=== PATIENT | female | born 1950 | race Caucasian/White ===

== ENCOUNTER 2017-05-26 13:14 | Inpatient (IN) ==
[2017-05-26] MEDS ORDERED: DOCUSATE SODIUM 100 MG CAPSULE PO PRN (16:58)
[2017-05-26] MEDS ORDERED: MORPHINE 2 MG/1 ML SYRINGE IV PRN (16:58)
[2017-05-26] MEDS ORDERED: LACTULOSE 20 GM/30 ML UDCUP PO PRN (16:58)
[2017-05-26] MEDS ORDERED: ACETAMINOPHEN 325 MG TABLET PO PRN (16:58)
[2017-05-26] MEDS ORDERED: SODIUM CHLORIDE 0.9% 1,000 ML IV SCH (17:00)
--- NOTE | 2017-05-26 17:29 | Hospitalist History & Physical ---
Assessment and Plan - Time spent with patient Time spent with patient: Greater than 30 minutes (1) Abdominal pain Status: Acute Assessment and plan: Patient has 5-6 day history of right lower and right upper quadrant pain with associated nausea vomiting diarrhea. CT at [facility] noted acute uncomplicated pancreatitis despite having normal pancreatic enzymes. Patient will be admitted for IV hydration, parenteral antiemetics and analgesics. Will consult GI to assist in her care. Current Visit: Yes (2) Nausea and vomiting Status: Acute Assessment and plan: Plan as noted above. Current Visit: Yes (3) Diarrhea Status: Acute Assessment and plan: Plan as noted above. Current Visit: Yes (4) Hypertension Status: Chronic Assessment and plan: We will continue her home amlodipine and atenolol. Current Visit: Yes Qualifiers: Hypertension type: essential hypertension Qualified Code(s): I10 - Essential (primary) hypertension (5) Trigeminal neuralgia Status: Chronic Assessment and plan: She is currently asymptomatic. She states that she been on Trileptal in the past which caused liver toxicity. She now sees a neurologist in [facility] in [place] who provides Botox injections which control her pain. Current Visit: Yes (6) Hypokalemia Status: Acute Assessment and plan: We will provide potassium replacement and IV fluids and follow-up level in the a.m. Current Visit: Yes History of Present Illness Chief complaint: Abdominal pain History of present illness: Ms. Abrams is a 67 year old white female with a history of hypertension, SVT, trigeminal neuralgia who states that on Monday she noted lower abdominal discomfort with abdominal swelling. She was initially seen an [facility] emergency room and felt to have diverticulitis and was placed on oral antibiotics and antiemetics and discharged home. Symptoms persisted and also included nausea with vomiting with attempts at any oral intake and right lower and right upper quadrant pain which radiated to her back and worsened with oral intake along with nonbloody diarrhea. And she went back to the emergency room at [facility]. She was admitted there and underwent CT of the abdomen and pelvis which noted findings consistent with acute uncomplicated pancreatitis. However her amylase and lipase were within normal limits. She has noted some low-grade fever as well. She states that she does have a history of diverticulitis. She was ultimately transferred [facility] for further evaluation and care. Home Medications Medication Instructions Recorded Confirmed Type Aspirin [Ecotrin] 81 mg PO BEDTIME 07/07/17 07/07/17 History Atenolol [Atenolol] 50 mg PO BID 05/26/17 05/26/17 History Docusate Sodium Cap [Colace Cap] 200 mg PO DAILY 05/26/17 05/26/17 History Esomeprazole Magnesium 40 mg PO DAILY 05/26/17 05/26/17 History [Esomeprazole] Potassium Chloride 20 meq PO DAILY 05/26/17 05/26/17 History Simvastatin [Simvastatin] 20 mg PO BEDTIME 05/26/17 05/26/17 History Temazepam [Temazepam] 15 mg PO BEDTIME PRN 05/26/17 05/26/17 History Tramadol HCl [Tramadol Tab] 50 mg PO BID PRN 05/26/17 05/26/17 History Tramadol HCl [Tramadol Tab] 50 mg PO BID PRN 05/26/17 05/26/17 History Triamterene/Hctz 37.5-25 Tab 1 tablet PO DAILY 05/26/17 05/26/17 History [Maxzide 37.5-25] amLODIPine [Norvasc] 2.5 mg PO DAILY 05/26/17 05/26/17 History Allergies Allergy/AdvReac Type Severity Reaction Status Date / Time No Known Allergies Allergy Verified 05/26/17 18:29 Medical,Surgical,& Family Hx - Medical History Cardio: History of: Cardiac Dysrhythmia (SVT), Hypertension Neurology: History of: Neurological Problems (Trigeminal neuralgia) Gastrointestinal: History of: Liver Problems (liver toxicity last year), GI Problems (duodenal ulcer) Musculoskeletal: History of: Back/Neck Problems (spinal stenosis) - Surgical History Abdominal Surgeries: Surgical HX of: Cholecystectomy Reproductive Surgeries: Surgical HX of;: Hysterectomy (1985) - Family History Family History: Reports;: Family Cancer (Father with colon cancer), Additional Family History (Mother with cerebral hemorrhage) - Social History Smoking Status: Never smoker Frequency of Alcohol Use: None Type of Drug Use: None Marital Status: Lives With:: Spouse 12 point system: reviewed and no additional remarkable complaints except as stated Exam - Constitutional Vitals: Period Temp Pulse Resp BP Sys/Fields Pulse Ox Last 24 Hr 98.8 F 102 18-18 160/70 98 General appearance: no acute distress - Head Head exam: Present: normocephalic, atraumatic - Eye Eye exam: Present: EOMI, nystagmus Pupils: Present: DAY - ENT ENT exam: Present: normal exam, normal oropharynx - Neck Neck exam: Present: normal inspection - Respiratory Respiratory exam: Present: clear to auscultation bilaterally. Absent: rales, rhonchi, wheezes - Cardiovascular Cardiovascular exam: Present: regular rate and rhythm, tachycardia. Absent: gallop, JVD, systolic murmur - GI/Abdominal GI/Abdominal exam: Present: normal bowel sounds, tenderness (Tenderness in the right lower and right upper quadrant without guarding or rebound), soft. Absent : mass, rebound - Extremities Exam Extremities exam: Absent: calf tenderness, edema - Back Exam Back exam: Present: normal inspection - Neurological Exam Neurological exam: Present: alert, oriented X3, CN II-XII intact. Absent: motor sensory deficit - Psychiatric Psychiatric exam: Present: normal affect, normal mood. Absent: agitated, anxious - Skin Skin exam: Present: warm, dry. Absent: erythema, rash Results - Labs CBC & BMP: 05/26/17 17:42 05/26/17 17:42 Lab Results: I have reviewed the past 24 hour labs Labs: Laboratory studies from [facility] reviewed. - Diagnostic Findings Procedure: CT Abdomen and Pelvis: report reviewed by me
[2017-05-26] MEDS ORDERED: hydrALAZINE 20 MG/1 ML VIAL IV PRN (17:38)
[2017-05-26 17:56] LABS: Basophils # 0.1 10*3/uL (0.0-0.2); Basophils % 0.5 % (0.0-0.8); Eosinophils # 0.1 10*3/uL (0.0-0.87); Eosinophils % 0.5 % (0.00-10.9); Hematocrit 36.2 VOL% (35.7-47.0); Hemoglobin 12.3 GM/DL (12.0-16.0); Immature Granulocytes % 0.3 %; Immature Granulocytes Absolute 0.03 #; Lymphocytes # 1.7 10*3/uL (1.4-4.0); Lymphocytes % 17.5 % (21.3-54.2); Mean Corpuscular Hemoglobin 30 PG (27-34); Mean Corpuscular Volume 89.4 FL (87-102); Mean Platelet Volume 10.2 FL (9.6-12.0); Monocytes # 0.8 10*3/uL (0.11-0.8); Monocytes % 8.5 % (1.7-12.7); Neutrophils % 72.7 % (38.7-73.9); Platelet Count 313 T/CUMM (130-400); Red Blood Count 4.05 MC/CUMM (3.8-5.5); Red Cell Distribution Width 12.9 % (9.3-17.3); White Blood Count 9.7 T/CUMM (4-12)
[2017-05-26] MEDS ORDERED: ATENOLOL 50 MG TABLET PO SCH (18:00)
[2017-05-26 18:22] LABS: Calcium 8.3 MG/DL (8.5-10.1); Osmolality,Calculated 279.1 MOS/KG (273-304); Potassium 3.3 MMOL/L (3.5-5.1)
[2017-05-26 18:23] LABS: Risk Ratio 2.15; Thyroid Stimulating Hormone 1.03 uIU/ml (0.358-3.74)
[2017-05-26] MEDS: amLODIPine 2.5 MG TABLET PO SCH (20:12)
[2017-05-26] MEDS: ATENOLOL 50 MG TABLET PO SCH (20:12)
[2017-05-26] MEDS: DEXT 5% NACL 0.45% KCL 40 MEQ 40 MEQ/1,000 ML BAG IV SCH (21:29)
[2017-05-27 05:50] LABS: Basophils # 0.1 10*3/uL (0.0-0.2); Basophils % 0.5 % (0.0-0.8); Eosinophils # 0.2 10*3/uL (0.0-0.87); Hematocrit 37.9 VOL% (35.7-47.0); Hemoglobin 12.7 GM/DL (12.0-16.0); Immature Granulocytes % 0.4 %; Immature Granulocytes Absolute 0.04 #; Lymphocytes % 21.8 % (21.3-54.2); Mean Corpuscular HGB Conc 33.5 GM/DL (32-36); Mean Corpuscular Hemoglobin 30 PG (27-34); Mean Corpuscular Volume 89.8 FL (87-102); Mean Platelet Volume 10.6 FL (9.6-12.0); Neutrophils % 64.3 % (38.7-73.9); Platelet Count 336 T/CUMM (130-400); Red Blood Count 4.22 MC/CUMM (3.8-5.5); Red Cell Distribution Width 12.8 % (9.3-17.3); White Blood Count 9.4 T/CUMM (4-12)
[2017-05-27 06:16] LABS: Calcium 8.5 MG/DL (8.5-10.1); Magnesium 2.3 MG/DL (1.8-2.4); Osmolality,Calculated 277.3 MOS/KG (273-304); Potassium 3.8 MMOL/L (3.5-5.1)
[2017-05-27 06:22] LABS: Calcium 8.4 MG/DL (8.5-10.1); Osmolality,Calculated 277.3 MOS/KG (273-304); Potassium 3.8 MMOL/L (3.5-5.1)
[2017-05-27] MEDS: ONDANSETRON 4 MG/2 ML VIAL IV PRN (08:14)
[2017-05-27] MEDS: PANTOPRAZOLE 40 MG VIAL IV SCH (08:16)
[2017-05-27] MEDS: ATENOLOL 50 MG TABLET PO SCH ×2 (08:21→20:22)
[2017-05-27] MEDS: amLODIPine 2.5 MG TABLET PO SCH (08:21)
[2017-05-27] MEDS ORDERED: PANTOPRAZOLE 40 MG TABLET PO SCH (09:00)
--- NOTE | 2017-05-27 09:11 | Gastrointestinal Consult Note ---
Assessment and Plan - Time spent with patient Time spent with patient: Greater than 30 minutes (1) Abdominal pain Status: Acute Current Visit: Yes (2) Abnormal findings on diagnostic imaging of abdomen Status: Acute Current Visit: Yes (3) Other specified counseling Status: Acute Current Visit: Yes History of Present Illness History of present illness: Ms. Abrams is a 67 year old female Home Medications Medication Instructions Recorded Confirmed Type Aspirin [Ecotrin] 81 mg PO BEDTIME 05/26/17 05/26/17 History Atenolol [Atenolol] 50 mg PO BID 05/26/17 05/26/17 History Docusate Sodium Cap [Colace Cap] 200 mg PO DAILY 05/26/17 05/26/17 History Esomeprazole Magnesium 40 mg PO DAILY 05/26/17 05/26/17 History [Esomeprazole] Potassium Chloride 20 meq PO DAILY 05/26/17 05/26/17 History Simvastatin [Simvastatin] 20 mg PO BEDTIME 05/26/17 05/26/17 History Temazepam [Temazepam] 15 mg PO BEDTIME PRN 05/26/17 05/26/17 History Tramadol HCl [Tramadol Tab] 50 mg PO BID PRN 05/26/17 05/26/17 History Tramadol HCl [Tramadol Tab] 50 mg PO BID PRN 05/26/17 05/26/17 History Triamterene/Hctz 37.5-25 Tab 1 tablet PO DAILY 05/26/17 05/26/17 History [Maxzide 37.5-25] amLODIPine [Norvasc] 2.5 mg PO DAILY 05/26/17 05/26/17 History Allergies Allergy/AdvReac Type Severity Reaction Status Date / Time No Known Allergies Allergy Verified 05/26/17 18:29 Medical,Surgical,& Family Hx - Medical History Cardio: History of: Cardiac Dysrhythmia (SVT), Hypertension Neurology: History of: Neurological Problems (Trigeminal neuralgia) Gastrointestinal: History of: Liver Problems (liver toxicity last year), GI Problems (duodenal ulcer) Musculoskeletal: History of: Back/Neck Problems (spinal stenosis) - Surgical History Abdominal Surgeries: Surgical HX of: Cholecystectomy Reproductive Surgeries: Surgical HX of;: Hysterectomy (1985) - Family History Family History: Reports;: Family Cancer (Father with colon cancer), Additional Family History (Mother with cerebral hemorrhage) - Social History Smoking Status: Never smoker Frequency of Alcohol Use: None Type of Drug Use: None Exam - Constitutional Vitals: Period Temp Pulse Resp BP Sys/Fields Pulse Ox Last 24 Hr 97.8 F-98.8 F 77-102 18-20 129-160/70-87 94-98 Results - Labs CBC & BMP: 05/27/17 04:57 05/27/17 04:57 Note Addendum: PLEASE NOTE -- automatic citation of patient information is unavoidable in this electronic note. I have made a reasonable effort to review the information cited , but it is not a part of my evaluation, impression, or recommendation unless specifically discussed in the dictated text that follows. As well, voice recognition software was used in the creation of this clinical note. Reasonable effort was made to identify and correct gross errors. Despite proofreading, errors in technology infusion specialist may be present, including nonsense verbiage at times. If you encounter such an error, please contact me at [phone] for discussion and correction. -- Jhonny Chief complaint: abdominal pain History of present illness: This is a new patient, a 67-year-old female seen by consultation for evaluation of abdominal pain. The patient is admitted to the hospitalist service under the care of Dr. Ramos with a primary diagnosis of same. The patient was admitted via transfer through the emergency department from [facility] with primary complaint of persistent lower abdominal pain. Evaluation at that time revealed radiologic evidence of acute pancreatitis but the patient did not have concomitant laboratory evidence of same, neither was the pattern of her pain consistent. She had been previously seen and treated in that same emergency department with presumptive diagnosis of diverticulitis but with no relief after two days of antibiotics. Since her admission here she has been treated conservatively with intravenous hydration, antiemetic, and analgesic. She reports improvement since her initial diagnosis but continues to have mild abdominal discomfort. She is having bowel movements, loose, yellow, without blood, mucus, or pus. She is hungry and would like to eat. She reports a history of duodenal ulcer last year but this was a presumptive diagnosis with no endoscopy done. She reports at least one prior episode of right-sided diverticulitis with subsequent colonoscopy accomplished by Dr. Osuna and no other findings on the exam. She is without other complaints at present. Patient denies night sweats, rigors, headache, dizziness, neck pain, visual changes, redness of the eyes, dysphagia, odynophagia, difficulty chewing, chest pain, shortness of breath, weight loss, regurgitation, hematemesis, hematochezia , melena, proctalgia, constipation, dysuria, skin changes, temperature regulation issues, flushing, easy bleeding/bruising, musculoskeletal pain, mental status change, numbness/weakness in the extremities, yellowing of the eyes/skin, cutaneous eruptions, and other complaints in general. Review of systems: 12 point review of systems was negative except as documented above. Outpatient medications: Colace, Mac side, tramadol, temazepam, aspirin, tramadol , potassium chloride, Nexium, Norvasc, Zocor, atenolol Inpatient medications: Tylenol, Norvasc, atenolol, Colace, hydralazine, [place], lactulose, morphine sulfate, Zofran, Protonix, D51/2NS infusion Past Medical History: supra-ventricular tachycardia, hypertension, trigeminal neuralgia, acute liver toxicity (Trileptal), duodenal ulcer, spinal stenosis, cholecystectomy, hysterectomy Social history: negative tobacco. Negative alcohol Family history: father with colorectal cancer greater than 60 years of age Physical examination: Vital Signs: Current vital signs reviewed and documented above. General Appearance: well-appearing. Not acutely ill. Head: Normocephalic. Neck: Palpation of the neck revealed no abnormalities. Eyes: No scleral icterus. No scleral injection. No conjunctival pallor. Oral Cavity: Odor of breath was normal. No drooling was observed. Lips showed no abnormalities. Floor of the mouth showed no abnormalities. Pharynx: Oropharynx was normal. Lungs: Respiration rhythm and depth was normal. Cardiovascular: Heart rate and rhythm were normal. No murmurs were appreciated. Abdomen: abdomen was not distended. Abdominal palpation revealed mild right lower quadrant tenderness and no hepatosplenomegaly. Ascites was not discovered. Abdominal auscultation revealed positive bowel sounds. Musculoskeletal System: Musculoskeletal system was grossly normal. Neurological: level of consciousness was normal. Speech was normal. Skin: General appearance was normal. Color and pigmentation were normal. No skin lesions. Laboratory: white blood count 9.4, hemoglobin 12.7, hematocrit 37.9, platelets 336, lipase 165 Radiology: reviewed Impressions: 1. Abdominal pain -- the differential diagnosis includes infectious enterocolitis, acute pancreatitis with atypical presentation, peptic ulcer, gastritis/esophagitis generally, pancreatic or biliary disease, and others. I recommend continued supportive care and initiation of a clear liquid diet. We will plant colonoscopy, likely on Monday, sooner if indicated. I recommend continued proton pump inhibitor. I recommend screening liver associated enzymes. 2. Abnormal imaging of the pancreas -- I don't have access to the actual images but this would be an atypical presentation for acute pancreatitis. While this does not rule out the diagnosis definitively, it does argue against. Nonetheless , I recommend continued supportive care with careful advancement of diet starting with clear liquids today. 2. Other specified counseling -- The patient was seen for greater than 30 minutes. The patient was counseled for greater than 50% of this time regarding differential diagnosis, likely diagnosis, diagnostic and therapeutic alternatives, risks/benefits/alternatives of medications and procedures, and plan of care generally. The patient expressed understanding and wishes to proceed. Recommendations: -- continued supportive care -- continued volume and electrolyte management -- continue proton pump inhibitor -- clear liquid diet -- colonoscopy, likely Monday -- patient may need upper endoscopy if no finding on colonoscopy -- screen for elevated liver enzymes -- thank you for this consultation. We will follow with you.
[2017-05-27] MEDS: DEXT 5% NACL 0.45% KCL 40 MEQ 40 MEQ/1,000 ML BAG IV SCH ×2 (10:41→23:43)
--- NOTE | 2017-05-27 11:22 | Hospitalist Progress Note ---
<Mack Soni - Last Filed: 05/27/17 12:48> Assessment and Plan (1) Abdominal pain Status: Acute Assessment and plan: Consult GI to evaluate. Clear diet. IVF. Pain meds as needed. Current Visit: Yes (2) Hypokalemia Status: Acute Assessment and plan: Potassium is stable today. Continue to monitor. Current Visit: Yes (3) Nausea and vomiting Status: Acute Assessment and plan: IVF hyrdation. Provide anti-emetics prn. Current Visit: Yes (4) Trigeminal neuralgia Status: Chronic Assessment and plan: Chronic issue. Pt. was on Trileptal. Followed by a doctor in [place]. Current Visit: Yes Hospitalist: Subjective Interval history: Pt. seen and examined. Pt. alert and oriented. Pt. states that she didn't have any issues overnight. No complaints with breathing. Pt. did complain of abdominal pain and tenderness. Denies n/v. Last episode was early Monday morn before arrival to our facility. GI to see today. We will continue to monitor patient. Advance diet as tolerated. Exam - Constitutional Vitals: Period Temp Pulse Resp BP Sys/Fields Pulse Ox Last 24 Hr 97.8 F-98.8 F 77-102 18-20 129-160/70-87 94-98 General appearance: no acute distress, over weight - Head Head exam: Present: normal inspection, normocephalic - Eye Eye exam: Present: EOMI. Absent: scleral icterus Pupils: Present: DAY - ENT ENT exam: Present: normal exam - Neck Neck exam: Present: normal inspection - Respiratory Respiratory exam: Present: clear to auscultation bilaterally. Absent: wheezes - Cardiovascular Cardiovascular exam: Present: regular rate and rhythm - GI/Abdominal GI/Abdominal exam: Present: normal bowel sounds, tenderness (right upper and lower quadrant), soft - Extremities Exam Extremities exam: Present: full ROM - Neurological Exam Neurological exam: Present: alert, oriented X3 - Psychiatric Psychiatric exam: Present: normal affect, normal mood - Skin Skin exam: Present: normal color, warm, dry Results - Labs CBC & BMP: 05/27/17 04:57 05/27/17 04:57 Lab Results: I have reviewed the past 24 hour labs <Stephen Paris - Last Filed: 05/27/17 13:41> Hospitalist: Subjective Interval history: Patient seen and examined along with LEAD CARPENTER Soni, agree with assessment and plan as documented. Patient reports that her initial complaint was abdominal distention which improved after two days with the initiation of emesis. It also seems that she was started on cipro and flagyl outpatient but could not tolerate po intake due to nausea and vomiting. Her current pain is exactly like her previous diverticulitis pain several years ago. GI has been consulted. Exam - Constitutional Vitals: Period Temp Pulse Resp BP Sys/Fields Pulse Ox Last 24 Hr 97.8 F-98.8 F 77-102 18-20 129-160/68-87 94-98 Results - Labs CBC & BMP: 05/27/17 04:57 05/27/17 04:57
[2017-05-28 05:42] LABS: Basophils # 0.1 10*3/uL (0.0-0.2); Basophils % 0.6 % (0.0-0.8); Eosinophils # 0.2 10*3/uL (0.0-0.87); Eosinophils % 2.2 % (0.00-10.9); Hematocrit 38.7 VOL% (35.7-47.0); Immature Granulocytes % 0.4 %; Immature Granulocytes Absolute 0.03 #; Lymphocytes # 2.4 10*3/uL (1.4-4.0); Lymphocytes % 29.3 % (21.3-54.2); Mean Corpuscular HGB Conc 33.6 GM/DL (32-36); Mean Corpuscular Hemoglobin 30 PG (27-34); Mean Platelet Volume 10.6 FL (9.6-12.0); Monocytes # 0.8 10*3/uL (0.11-0.8); Monocytes % 9.3 % (1.7-12.7); Neutrophils # 4.8 10*3/uL (1.4-7.4); Neutrophils % 58.2 % (38.7-73.9); Platelet Count 401 T/CUMM (130-400); Red Cell Distribution Width 12.8 % (9.3-17.3); White Blood Count 8.2 T/CUMM (4-12)
[2017-05-28 06:11] LABS: Calcium 8.3 MG/DL (8.5-10.1); Osmolality,Calculated 277.3 MOS/KG (273-304)
[2017-05-28] MEDS: PANTOPRAZOLE 40 MG VIAL IV SCH (10:03)
[2017-05-28] MEDS: amLODIPine 2.5 MG TABLET PO SCH (10:08)
[2017-05-28] MEDS: ATENOLOL 50 MG TABLET PO SCH ×2 (10:08→21:02)
--- NOTE | 2017-05-28 12:59 | Gastrointestinal Progress Note ---
Assessment and Plan (1) Abdominal pain Status: Acute Current Visit: Yes (2) Abnormal findings on diagnostic imaging of abdomen Status: Acute Current Visit: Yes (3) Other specified counseling Status: Acute Current Visit: Yes Exam (Progress Note) - Constitutional Vitals: Period Temp Pulse Resp BP Sys/Fields Pulse Ox Last 24 Hr 97.1 F-98.7 F 72-80 18-22 116-138/58-78 93-95 Results - Labs CBC & BMP: 05/28/17 04:12 05/28/17 04:12 Note Addendum: PLEASE NOTE -- automatic citation of patient information is unavoidable in this electronic note. I have made a reasonable effort to review the information cited , but it is not a part of my evaluation, impression, or recommendation unless specifically discussed in the dictated text that follows. As well, voice recognition software was used in the creation of this clinical note. Reasonable effort was made to identify and correct gross errors. Despite proofreading, errors in centerless grinder operator may be present, including nonsense verbiage at times. If you encounter such an error, please contact me at for discussion and correction. -- Jhonny Chief complaint: abdominal pain History of present illness: This is a follow-up patient, a 67-year-old female seen for evaluation of abdominal pain. The patient reports feeling fairly well this morning. She is not having significant abdominal pain. No fevers have been reported. She is tolerating oral intake without difficulty. Review of systems: 12 point review of systems was negative except as documented above. Inpatient medications: Tylenol, Norvasc, atenolol, Colace, hydralazine, [place], lactulose, morphine sulfate, Zofran, Protonix, D51/2NS infusion Physical examination: Vital Signs: Current vital signs reviewed and documented above. General Appearance: well-appearing. Not acutely ill. Head: Normocephalic. Neck: Palpation of the neck revealed no abnormalities. Eyes: No scleral icterus. No scleral injection. No conjunctival pallor. Oral Cavity: Odor of breath was normal. No drooling was observed. Lips showed no abnormalities. Floor of the mouth showed no abnormalities. Pharynx: Oropharynx was normal. Lungs: Respiration rhythm and depth was normal. Cardiovascular: Heart rate and rhythm were normal. No murmurs were appreciated. Abdomen: abdomen was not distended. Abdominal palpation revealed mild right lower quadrant tenderness and no hepatosplenomegaly. Ascites was not discovered. Abdominal auscultation revealed positive bowel sounds. Musculoskeletal System: Musculoskeletal system was grossly normal. Neurological: level of consciousness was normal. Speech was normal. Skin: General appearance was normal. Color and pigmentation were normal. No skin lesions. Laboratory: white blood count 8.2, hemoglobin 13.0, hematocrit 38.7, platelets 401 Microbiology: stool cultures negative, fecal occult blood test one plus positive , Clostridium difficile negative Radiology: reviewed Impressions: 1. Abdominal pain -- the patient is doing well this morning. We will plan upper endoscopy tomorrow and follow up with further recommendations pending the result of that exam. 2. Abnormal imaging of the pancreas -- the patient remains without clear clinical evidence of pancreatitis. Continue to monitor. 3. Other specified counseling -- The patient was seen for 30 minutes. The patient was counseled for greater than 50% of this time regarding differential diagnosis, likely diagnosis, diagnostic and therapeutic alternatives, risks/ benefits/alternatives of medications and procedures, and plan of care generally. The patient expressed understanding and wishes to proceed. Recommendations: -- continued supportive care -- continued volume and electrolyte management -- continue proton pump inhibitor -- clear liquid diet -- upper endoscopy tomorrow -- patient may need colonoscopy if no finding on colonoscopy -- screen for evidence of liver disease -- thank you for this consultation. Dr. Osuna will assume G.I. care for this patient tomorrow.
--- NOTE | 2017-05-28 14:28 | Hospitalist Progress Note ---
Assessment and Plan (1) Abdominal pain Status: Acute Assessment and plan: GI assisting Possible colonoscopy tomorrow IV fluids, pain control, antiemetics, liquid diet Current Visit: Yes (2) Nausea and vomiting Status: Acute Current Visit: Yes (3) Diarrhea Status: Acute Current Visit: Yes (4) Hypertension Status: Chronic Current Visit: Yes Qualifiers: Hypertension type: essential hypertension Qualified Code(s): I10 - Essential (primary) hypertension (5) Trigeminal neuralgia Status: Chronic Current Visit: Yes Hospitalist: Subjective Interval history: No acute events overnight. She feels much better today. Stomach pain is much better. Exam - Constitutional Vitals: Period Temp Pulse Resp BP Sys/Fields Pulse Ox Last 24 Hr 97.1 F-98.7 F 72-80 18-22 116-138/58-78 93-95 General appearance: over weight - Head Head exam: Present: normocephalic, atraumatic - Eye Eye exam: Present: EOMI Pupils: Present: DAY - ENT ENT exam: Present: normal exam - Neck Neck exam: Present: normal inspection - Respiratory Respiratory exam: Present: clear to auscultation bilaterally. Absent: rhonchi, wheezes - Cardiovascular Cardiovascular exam: Present: regular rate and rhythm - GI/Abdominal GI/Abdominal exam: Present: normal bowel sounds, soft. Absent: tenderness, rebound - Extremities Exam Extremities exam: Present: normal inspection - Back Exam Back exam: Present: normal inspection - Neurological Exam Neurological exam: Present: alert, oriented X3 - Psychiatric Psychiatric exam: Present: normal affect, normal mood - Skin Skin exam: Present: warm, intact Results - Labs CBC & BMP: 05/28/17 04:12 05/28/17 04:12
[2017-05-28] MEDS: DEXT 5% NACL 0.45% KCL 40 MEQ 40 MEQ/1,000 ML BAG IV SCH ×2 (15:47→15:48)
[2017-05-29 05:44] LABS: Basophils # 0.1 10*3/uL (0.0-0.2); Basophils % 0.8 % (0.0-0.8); Eosinophils # 0.2 10*3/uL (0.0-0.87); Eosinophils % 2.5 % (0.00-10.9); Hematocrit 35.1 VOL% (35.7-47.0); Hemoglobin 11.8 GM/DL (12.0-16.0); Immature Granulocytes % 0.3 %; Immature Granulocytes Absolute 0.02 #; Lymphocytes # 1.7 10*3/uL (1.4-4.0); Lymphocytes % 27.8 % (21.3-54.2); Mean Corpuscular HGB Conc 33.6 GM/DL (32-36); Mean Corpuscular Hemoglobin 30 PG (27-34); Mean Corpuscular Volume 89.3 FL (87-102); Mean Platelet Volume 10.4 FL (9.6-12.0); Monocytes # 0.6 10*3/uL (0.11-0.8); Monocytes % 10.3 % (1.7-12.7); Neutrophils # 3.6 10*3/uL (1.4-7.4); Neutrophils % 58.3 % (38.7-73.9); Platelet Count 362 T/CUMM (130-400); Red Blood Count 3.93 MC/CUMM (3.8-5.5); Red Cell Distribution Width 12.6 % (9.3-17.3); White Blood Count 6.1 T/CUMM (4-12)
[2017-05-29 06:15] LABS: Calcium 8.8 MG/DL (8.5-10.1); Osmolality,Calculated 279.1 MOS/KG (273-304); Potassium 4.1 MMOL/L (3.5-5.1)
[2017-05-29] MEDS: amLODIPine 2.5 MG TABLET PO SCH (09:12)
[2017-05-29] MEDS: ATENOLOL 50 MG TABLET PO SCH ×2 (09:12→21:19)
[2017-05-29] MEDS: PANTOPRAZOLE 40 MG VIAL IV SCH (09:12)
[2017-05-29] MEDS ORDERED: PROPOFOL 200 MG/20 ML VIAL IV ONE (11:34)
[2017-05-29] MEDS ORDERED: LIDOCAINE 2% 5 ML VIAL ONE (11:34)
--- NOTE | 2017-05-29 11:36 | History and Physical Update ---
History and Physical Update - Physical Exam Mental Status: alert and oriented Heart: regular rate and rhythm Lung: clear to auscultation Abdomen: within normal limits Vitals: within normal limits
--- NOTE | 2017-05-29 11:49 | Operative Note ---
Date of procedure: 05/29/17 Pre-op diagnosis: Abdominal pain with persistent nausea and vomiting. Procedure: EGD with biopsy 67-year-old female with persistent complaints of nausea vomiting abdominal pain occult positive stools now for EGD to further evaluate. Informed symptoms obtained the patient She was sedated with MAC anesthesia per anesthesia protocol. Patient placed left lateral decubitus position the Olympus flexible video upper endoscope was inserted into the oral cavity under direct vision the esophagus was intubated. Findings: Esophagus-normal proximal and mid esophageal mucosa distal esophagus with small hiatal hernia no significant stricture or Lopez's varices or esophagitis was identified. Stomach-normal insufflation normal mucosa to direct retroflexed views of the body fundus cardia and antrum the stomach. A single gastric polyp was seen in the greater curvature body of the stomach 6 mm in size and was biopsied with cold biopsy forceps. Pylorus-normal Duodenum-normal for the bulb duodenum to the third portion of duodenum. The procedure was terminated placed our procedure well she is discharged recovery in good condition. Postop diagnosis: 1. Gastroesophageal reflux disease-continue PPI treatment 2. Gastric arhfu-yxhvuf-py path 3. No upper source for occult positive stools or current symptoms abdominal pain noted. Will proceed with colonoscopy in a.m. Anesthesia: MAC Surgeon / Physician: Capo Osuna Estimated blood loss: none Specimens: other (Gastric polyp) Condition: stable Disposition: post procedure unit Results - Labs CBC & BMP: 05/29/17 04:37 05/29/17 04:37 Discharge Plan - Discharge Medications No Action Atenolol [Atenolol] 50 mg PO BID Potassium Chloride 20 meq PO DAILY Tramadol HCl [Tramadol Tab] 50 mg PO BID PRN PRN Reason: Pain Mild To Moderate (1-7) Tramadol HCl [Tramadol Tab] 50 mg PO BID PRN PRN Reason: Abdominal Pain Aspirin [Ecotrin] 81 mg PO BEDTIME Docusate Sodium Cap [Colace Cap] 200 mg PO DAILY Simvastatin [Simvastatin] 20 mg PO BEDTIME amLODIPine [Norvasc] 2.5 mg PO DAILY Esomeprazole Magnesium [Esomeprazole] 40 mg PO DAILY Triamterene/Hctz 37.5-25 Tab [Maxzide 37.5-25] 1 tablet PO DAILY Temazepam [Temazepam] 15 mg PO BEDTIME PRN PRN Reason: Sleep - Follow Up or Referral - Forms/Instructions
--- NOTE | 2017-05-29 11:57 | Anesthesia Post-Op ---
Anesthesia Post OP - Post Ansesthetic Evaluation Patient seen in post op: Yes Resp: within normal limits CV: within normal limits Mental: within normal limits Temp: within normal limits Xdnh-Sf-Qvehnyuua: within normal limits Nausea and Vomiting: within normal limits Pain: within normal limits
[2017-05-29] MEDS ORDERED: BISACODYL 5 MG TABLET PO ONE (12:00)
--- NOTE | 2017-05-29 13:31 | Hospitalist Progress Note ---
Assessment and Plan (1) Abdominal pain Status: Acute Assessment and plan: GI assisting IV fluids, pain control, antiemetics, liquid diet EGD today without acute process Plan for colonoscopy tomorrow Current Visit: Yes (2) Nausea and vomiting Status: Acute Current Visit: Yes (3) Diarrhea Status: Acute Current Visit: Yes (4) Hypertension Status: Chronic Current Visit: Yes Qualifiers: Hypertension type: essential hypertension Qualified Code(s): I10 - Essential (primary) hypertension (5) Trigeminal neuralgia Status: Chronic Current Visit: Yes Hospitalist: Subjective Interval history: No acute events overnight. Patient still with RLQ abdominal pain, which she describes as "colicky" Exam - Constitutional Vitals: Period Temp Pulse Resp BP Sys/Fields Pulse Ox Last 24 Hr 96.9 F-99.1 F 66-78 14-22 97-161/54-89 93-99 General appearance: over weight - Head Head exam: Present: normocephalic, atraumatic - Eye Eye exam: Present: EOMI Pupils: Present: DAY - ENT ENT exam: Present: normal exam - Neck Neck exam: Present: normal inspection - Respiratory Respiratory exam: Present: clear to auscultation bilaterally. Absent: rhonchi, wheezes - Cardiovascular Cardiovascular exam: Present: regular rate and rhythm - GI/Abdominal GI/Abdominal exam: Present: normal bowel sounds, tenderness, soft. Absent: rebound - Extremities Exam Extremities exam: Present: normal inspection - Back Exam Back exam: Present: normal inspection - Neurological Exam Neurological exam: Present: alert, oriented X3 - Psychiatric Psychiatric exam: Present: normal affect, normal mood - Skin Skin exam: Present: warm, intact Results - Labs CBC & BMP: 05/29/17 04:37 05/29/17 04:37
[2017-05-29] MEDS: ONDANSETRON 4 MG/2 ML VIAL IV PRN (13:58)
[2017-05-29] MEDS ORDERED: POLYETHYLENE GLYCOL POWDER 255 GM BOTTLE PO ONE (18:00)
[2017-05-29] MEDS: DEXT 5% NACL 0.45% KCL 40 MEQ 40 MEQ/1,000 ML BAG IV SCH (22:25)
[2017-05-30 06:53] LABS: Basophils # 0.1 10*3/uL (0.0-0.2); Basophils % 0.8 % (0.0-0.8); Eosinophils # 0.2 10*3/uL (0.0-0.87); Eosinophils % 2.7 % (0.00-10.9); Hematocrit 38.1 VOL% (35.7-47.0); Hemoglobin 12.5 GM/DL (12.0-16.0); Immature Granulocytes % 0.3 %; Immature Granulocytes Absolute 0.02 #; Lymphocytes # 1.8 10*3/uL (1.4-4.0); Lymphocytes % 30.7 % (21.3-54.2); Mean Corpuscular HGB Conc 32.8 GM/DL (32-36); Mean Corpuscular Hemoglobin 30 PG (27-34); Mean Corpuscular Volume 90.1 FL (87-102); Mean Platelet Volume 9.7 FL (9.6-12.0); Monocytes # 0.7 10*3/uL (0.11-0.8); Monocytes % 11.7 % (1.7-12.7); Neutrophils # 3.2 10*3/uL (1.4-7.4); Neutrophils % 53.8 % (38.7-73.9); Platelet Count 415 T/CUMM (130-400); Red Blood Count 4.23 MC/CUMM (3.8-5.5); Red Cell Distribution Width 12.6 % (9.3-17.3)
[2017-05-30 07:29] LABS: Magnesium 2.1 MG/DL (1.8-2.4); Potassium 4.2 MMOL/L (3.5-5.1)
[2017-05-30] MEDS: amLODIPine 2.5 MG TABLET PO SCH (08:37)
[2017-05-30] MEDS: ATENOLOL 50 MG TABLET PO SCH ×2 (08:37→21:49)
[2017-05-30] MEDS: PANTOPRAZOLE 40 MG VIAL IV SCH (08:38)
[2017-05-30] MEDS ORDERED: PROPOFOL 200 MG/20 ML VIAL IV ONE (11:02)
[2017-05-30] MEDS ORDERED: LIDOCAINE 2% 5 ML VIAL ONE (11:02)
--- NOTE | 2017-05-30 11:29 | Operative Note ---
Date of procedure: 05/30/17 Pre-op diagnosis: Occult positive stools Procedure: Colonoscopy with hot biopsy and snare polypectomy 67-year-old female admitted with nausea vomiting abdominal pain rectal bleeding now for colonoscopy to further evaluate for the source and occult positive stools. Informed symptoms obtained from the patient She was sedated with MAC anesthesia per anesthesia protocol. Digital exam reveals a irregular area in the anus no mass was felt. The Olympus flexible video colonoscope surname canal advanced under direct vision level cecum identify obvious ago valve appendiceal orifice. Prep was fair Withdrawal time 9 minutes Findings: Cecum-8 mm sessile polyp initially snared with some residual tissue hot biopsy fulgurated. Terminal ileum-normal Ascending colon-normal Transverse colon-normal Descending colon-diverticulosis/moderate Sigmoid colon-diverticulosis moderate to severe with scarring Rectosigmoid-4 mm polyp hot biopsy fulgurated Rectum normal to direct view. Retroflexed view reveals an anal fissure which is likely the source of her occult positive stools and rectal bleeding. The procedure was terminated patient tolerated the procedure well and his discharge recovery in good condition. Postop diagnosis: 1. Anal fissure-likely source for rectal bleeding and occult positive stools will treat symptomatically 2. Colon polyps follow-up path 3. Diverticulosis-maintain adequate fiber and fluid intake 4. Repeat CT scan of the abdomen and pelvis with thin sections through the pancreas. Anesthesia: MAC Surgeon / Physician: Capo Osuna Estimated blood loss: none Specimens: other (1. Cecal polyp #2 rectosigmoid polyp) Condition: stable Disposition: post procedure unit Results - Labs CBC & BMP: 05/30/17 06:29 05/30/17 06:29 Discharge Plan - Discharge Medications No Action Atenolol [Atenolol] 50 mg PO BID Potassium Chloride 20 meq PO DAILY Tramadol HCl [Tramadol Tab] 50 mg PO BID PRN PRN Reason: Pain Mild To Moderate (1-7) Tramadol HCl [Tramadol Tab] 50 mg PO BID PRN PRN Reason: Abdominal Pain Aspirin [Ecotrin] 81 mg PO BEDTIME Docusate Sodium Cap [Colace Cap] 200 mg PO DAILY Simvastatin [Simvastatin] 20 mg PO BEDTIME amLODIPine [Norvasc] 2.5 mg PO DAILY Esomeprazole Magnesium [Esomeprazole] 40 mg PO DAILY Triamterene/Hctz 37.5-25 Tab [Maxzide 37.5-25] 1 tablet PO DAILY Temazepam [Temazepam] 15 mg PO BEDTIME PRN PRN Reason: Sleep - Follow Up or Referral - Forms/Instructions
--- NOTE | 2017-05-30 11:30 | Anesthesia Post-Op ---
Anesthesia Post OP - Post Ansesthetic Evaluation Patient seen in post op: Yes Resp: within normal limits CV: within normal limits Mental: within normal limits Temp: within normal limits Oywj-Oz-Adwjzbjnt: within normal limits Nausea and Vomiting: within normal limits Pain: within normal limits
[2017-05-30] MEDS: DEXT 5% NACL 0.45% KCL 40 MEQ 40 MEQ/1,000 ML BAG IV SCH (12:33)
--- NOTE | 2017-05-30 15:33 | Hospitalist Progress Note ---
Assessment and Plan (1) Abdominal pain Status: Acute Assessment and plan: GI assisting IV fluids, pain control, antiemetics, liquid diet EGD today without acute process Colonoscopy with anal fissure and diverticulosis, no clear cause of her pain Repeating CT scan with A/P with focus on the pancreas Current Visit: Yes (2) Nausea and vomiting Status: Acute Current Visit: Yes (3) Diarrhea Status: Acute Current Visit: Yes (4) Hypertension Status: Chronic Current Visit: Yes Qualifiers: Hypertension type: essential hypertension Qualified Code(s): I10 - Essential (primary) hypertension (5) Trigeminal neuralgia Status: Chronic Current Visit: Yes Hospitalist: Subjective Interval history: No acute events overnight. Abdominal pain is better. Exam - Constitutional Vitals: Period Temp Pulse Resp BP Sys/Fields Pulse Ox Last 24 Hr 97.3 F-98.3 F 61-74 16-20 118-152/68-85 94-99 General appearance: over weight - Head Head exam: Present: normocephalic, atraumatic - Eye Eye exam: Present: EOMI Pupils: Present: DAY - ENT ENT exam: Present: normal exam - Neck Neck exam: Present: normal inspection - Respiratory Respiratory exam: Present: clear to auscultation bilaterally. Absent: rhonchi, wheezes - Cardiovascular Cardiovascular exam: Present: regular rate and rhythm - GI/Abdominal GI/Abdominal exam: Present: normal bowel sounds, soft - Extremities Exam Extremities exam: Present: normal inspection - Back Exam Back exam: Present: normal inspection - Neurological Exam Neurological exam: Present: alert, oriented X3 - Psychiatric Psychiatric exam: Present: normal affect, normal mood - Skin Skin exam: Present: warm, intact Results - Labs CBC & BMP: 05/30/17 06:29 05/30/17 06:29
--- NOTE | 2017-05-30 15:43 | CT Report ---
CT of the abdomen and pelvis without and with intravenous contrast. Indication: Previous abnormal CT of the pancreas. 100 cc Omni 350. Axial images were obtained sagittal and coronal reconstructions. Comparison: November 24, 2009. No recent CT or CT report from an outside hospital is available, so careful clinical correlation is recommended. The heart is enlarged. There are mild areas of scarring within the lung bases. The liver is normal in size and density. The liver contains numerous granulomata. No suspicious lesions are seen within the liver. The gallbladder has been removed. The spleen size is normal. The spleen also contains numerous diverticuli. There is heavy calcification within the splenic artery. The extrahepatic ducts are not dilated. The pancreatic duct is not dilated. Along the inferior anterior margin of the pancreas, there is stranding in the fat. In addition, there is a small, 15 x 20 mm focus of low density within irregular wall. The pancreas perfuses normally. There are couple of subcentimeter lymph nodes in the peripancreatic region. The abdominal aorta is of normal caliber. Minimal plaque is seen within its wall. The gastric contour is normal. The loops of small intestine are not dilated. There is an umbilical hernia which contains only fat. The terminal ileum presents a normal appearance. The appendix is not discretely seen. No inflammatory changes are noted in the right lower quadrant. Bowel contrast extends to the rectum, without evidence of obstruction. There are several diverticuli seen in the distal colon. The pelvic organs appear to have been removed. There is no inguinal or iliac chain lymphadenopathy. The urinary bladder presents a normal appearance. Osseous structures are unremarkable. Impression: 1. Evidence of previous granulomatous disease. 2. Adjacent to the anterior margin of the uncinate of the pancreas, and adjacent to the third portion of the duodenum, there is a focus of ill-defined low density with surrounding stranding opacities. This likely corresponds with the reported finding of a pancreas abnormality. From a CT standpoint, this appears inflammatory and may be the result of previous pancreatitis. This will need to be correlated clinically, as the previous exam is not available. No abnormality was seen on our previous CT from 2009, in this location. If the patient has chronically had symptoms of pancreatitis, then short-term follow-up in a few weeks is recommended to make sure it completely resolves. If there is no clinical history of pancreatitis, a more aggressive process should be considered, with further evaluation warranted. 3. Diverticulosis The CT exam was performed using one or more of the following dose reduction techniques: Automated exposure control, adjustment of the mA and/or kV according to patient size, or use of iterative reconstruction technique. PROCEDURE INTERPRETED AT [facility] DEPARTMENT OF RADIOLOGY Final Report Signed by: Dr. Vicki Sanchez
[2017-05-31] MEDS: DEXT 5% NACL 0.45% KCL 40 MEQ 40 MEQ/1,000 ML BAG IV SCH (01:27)
[2017-05-31 05:34] LABS: Calcium 8.4 MG/DL (8.5-10.1); Osmolality,Calculated 274.4 MOS/KG (273-304); Potassium 4.3 MMOL/L (3.5-5.1)
[2017-05-31 06:44] LABS: Cancer Antigen 19-9 12.1 U/ML (0-37); Carcinoembryonic Antigen < 0.5 NG/ML (0.0-5.0)
[2017-05-31] MEDS: amLODIPine 2.5 MG TABLET PO SCH (09:51)
[2017-05-31] MEDS: PANTOPRAZOLE 40 MG VIAL IV SCH (09:52)
[2017-05-31] MEDS: ATENOLOL 50 MG TABLET PO SCH (09:52)
--- NOTE | 2017-05-31 11:14 | Gastrointestinal Progress Note ---
<RobertKiki Kem - Last Filed: 05/31/17 11:07> Assessment and Plan (1) Abdominal pain Status: Acute Assessment and plan: 05/31-abdominal pain improved, tolerating diet at present time. CT findings noted as below. Pathology still pending. Okay to continue to advance diet as tolerated. Plan an addendum will follow Dr. Enrrique castro Gastroenterology - PN: Subj Interval history: CC: Occult positive stools, abd pain Pt is seen, awake and alert, sitting up in bed. States she is feeling better today. She denies any abdominal pain, nausea or vomiting. She is tolerating her diet well at this time. C-scope findings noted for anal fissure, colon polyp with path pending, and diverticulosis. CT of abdomen noted with ill defined low density surrounding stranding opacities, appearing inflammatory in nature, no ductal dilation, normal pancreatic perfusion, two subcentimenter lymph nodes in peripancreatic region. She states she feels well enough to go home at this time and is requesting to be discharged if possible. ROS: Denies SOB or chest pain Exam (Progress Note) - Constitutional Vitals: Period Temp Pulse Resp BP Sys/Fields Pulse Ox Last 24 Hr 96.1 F-97.7 F 61-75 16-68 137-157/69-81 94-99 General appearance: normal weight, no acute distress - Head Head exam: Present: normal inspection, normocephalic - Eye Eye exam: Present: other (Lids and conjunctive are unremarkable). Absent: scleral icterus - ENT ENT exam: Present: normal exam, normal oropharynx - Neck Neck exam: Present: normal inspection - Respiratory Respiratory exam: Present: clear to auscultation bilaterally. Absent: rales, rhonchi, wheezes - Cardiovascular Cardiovascular exam: Present: regular rate and rhythm. Absent: diastolic murmur , JVD, systolic murmur - GI/Abdominal GI/Abdominal exam: Present: normal bowel sounds, soft. Absent: ascites, distended, mass, organomegaly, tenderness - Extremities Exam Extremities exam: Present: normal inspection, full ROM - Back Exam Back exam: Present: normal inspection - Neurological Exam Neurological exam: Present: alert, oriented X3 - Psychiatric Psychiatric exam: Present: normal affect, normal mood - Skin Skin exam: Present: normal color, warm, dry Results - Labs CBC & BMP: 07/11/17 06:29 05/31/17 04:25 Lab Results: I have reviewed the past 24 hour labs - Diagnostic Findings Procedure: CT Abdomen and Pelvis: report reviewed by me <Capo Osuna - Last Filed: 05/31/17 18:42> Exam (Progress Note) - Constitutional Vitals: Period Temp Pulse Resp BP Sys/Fields Pulse Ox Last 24 Hr 96.4 F-97.7 F 69-75 18-22 136-157/69-81 94-98 Results - Labs CBC & BMP: 05/30/17 06:29 05/31/17 04:25
--- NOTE | 2017-05-31 13:18 | Pathology Report from [facility] ---
[facility] ACCESSION # : [id number] PATIENT NAME : Sussy Mccauley ORDERING DR : MINA ALEXIS MD CLINICAL HX: Abd pain POST-OP DX: Same SPECIMEN INFO: Gastric polyp GROSS DESCRIPTION: Received in formalin labeled SUSSY MCCAULEY is a 0.2 x 0.2 cm laura tissue fragment submitted in one cassette. DIAGNOSIS FOR SUSSY MCCAULEY: GASTRIC, BIOPSY: Chronic superficial gastritis. H.pylori not seen on H&E or special stain with appropriate control. Focal mucosal smooth muscle proliferation c/w mucosal prolapse polyp vs hyperplastic polyp. COLLECTED DATE: 05/29/2017 [facility] REPORT DATE: 05/30/2017 ELECTRONICALLY SIGNED BY: Sita Smith M.D. 05/30/2017 - 11:31:19 [facility]
--- NOTE | 2017-05-31 13:33 | Pathology Report from [facility] ---
[place] ACCESSION # : [id number] PATIENT NAME : Sussy Mccauley ORDERING DR : MINA ALEXIS MD CLINICAL HX: Abdominal pain with persistent nausea and vomiting POST-OP DX: Polypectomy SPECIMEN INFO: #1 Cecum polyp #2 Rectal sigmoid polyp GROSS DESCRIPTION: #1 Received in formalin labeled with the patients name SUSSY MCCAULEY and #1 consists of two laura tissue fragments measuring 0.5 x 0.2 cm collectively. Submitted in cassette #1.#2 Received in formalin labeled with the patients name SUSSY MCCAULEY and #2 consists of a 0.3 x 0.2 cm laura tissue fragment. Submitted in cassette #2. DIAGNOSIS FOR SUSSY MCCAULEY: #1 CECAL BIOPSIES: Tubular adenoma.#2 RECTOSIGMOID COLON BIOPSY: Tubular adenoma. COLLECTED DATE: 05/30/2017 [facility] REPORT DATE: 05/31/2017 ELECTRONICALLY SIGNED BY: Charlie Monzon M.D. 05/31/2017 - 10:29:53 [facility]
--- NOTE | 2017-05-31 14:40 | Discharge Summary ---
Hospital Course - Hospital Course Hospital Course: Ms. Abrams is a 67 year old white female with a history of hypertension, SVT, trigeminal neuralgia who stated that on Monday she noted lower abdominal discomfort with abdominal swelling. She was initially seen at an outlying emergency room and felt to have diverticulitis and was placed on oral antibiotics and antiemetics and discharged home. Symptoms persisted and also included nausea with vomiting with attempts at any oral intake and right lower and right upper quadrant pain which radiated to her back and worsened with oral intake along with nonbloody diarrhea. She went back to the emergency room at [facility]. She was admitted there and underwent CT of the abdomen and pelvis which noted findings consistent with acute uncomplicated pancreatitis. However her amylase and lipase were within normal limits. She was noted some low-grade fever as well. She stated that she does have a history of diverticulitis. She was admitted to the hospitalist service for further care. She was started on IV hydration, IV pain medication and anti- emetics. Gastroenterology was consulted. She underwent an EGD 05/29/17 with GERD and a gastric polyp but no clear cause for her pain. A colonoscopy was performed 05/30/17 which showed an anal fissure, colon polyps and diverticulosis. CT A/P was repeated which showed a focus of ill-defined low density with surround stranding opacities located around the pancreas. She is clinically doing better, pain is resolved and tolerating a diet. She has now reached maximal benefit of inpatient stay and will be discharged to home. She will have a repeat CT in 6-8 weeks, with GI follow-up. - Time spent with patient Time with patient DS: Greater than 30 minutes (35) Diagnosis - Discharge Diagnosis (1) Abdominal pain Status: Resolved (2) Nausea and vomiting Status: Resolved (3) Diarrhea Status: Resolved (4) Hypertension Status: Chronic (5) Trigeminal neuralgia Status: Chronic Discharge Plan - Discharge Data Disposition: Disch To Home/Self Care Condition at Discharge: Stable Discharge Diet: high fiber diet Activity: increase activity as tolerated Hygiene: no restrictions Weight Bearing at Discharge: weight bear as tolerated Driving: no restrictions Contact your physician if you experience:: fever over 101, Nausea/Vomiting, pain uncontrolled by pain medications - Discharge Medications New Ondansetron Odt Tab [Zofran Odt] 4 mg PO Q4H #30 tablet Continue Atenolol 50 mg PO BID Potassium Chloride 20 meq PO DAILY Tramadol HCl [Tramadol Tab] 50 mg PO BID PRN PRN Reason: Pain Mild To Moderate (1-7) Tramadol HCl [Tramadol Tab] 50 mg PO BID PRN PRN Reason: Abdominal Pain Aspirin [Ecotrin] 81 mg PO BEDTIME Docusate Sodium Cap [Colace Cap] 200 mg PO DAILY Simvastatin 20 mg PO BEDTIME amLODIPine [Norvasc] 2.5 mg PO DAILY Esomeprazole Magnesium [Esomeprazole] 40 mg PO DAILY Triamterene/Hctz 37.5-25 Tab [Maxzide 37.5-25] 1 tablet PO DAILY Temazepam 15 mg PO BEDTIME PRN PRN Reason: Sleep - Follow Up or Referral - Forms/Instructions Exam - Constitutional Vitals: Period Temp Pulse Resp BP Sys/Fields Pulse Ox Last 24 Hr 96.1 F-97.7 F 68-75 18-68 136-157/69-81 94-98 General appearance: over weight - Head Head exam: Present: normocephalic, atraumatic - Eye Eye exam: Present: EOMI Pupils: Present: DAY - ENT ENT exam: Present: normal exam - Neck Neck exam: Present: normal inspection - Respiratory Respiratory exam: Present: clear to auscultation bilaterally. Absent: rhonchi, wheezes - Cardiovascular Cardiovascular exam: Present: regular rate and rhythm - GI/Abdominal GI/Abdominal exam: Present: normal bowel sounds, soft. Absent: tenderness, rebound - Extremities Exam Extremities exam: Present: normal inspection - Back Exam Back exam: Present: normal inspection - Neurological Exam Neurological exam: Present: alert, oriented X3 - Psychiatric Psychiatric exam: Present: normal affect, normal mood - Skin Skin exam: Present: warm, intact Discharge Results Procedures and tests throughout hospitalization: Pending Orders 05/27/17 04:45 Occult Blood, Stool Stat Labs on day of discharge: Labs from last 24 hours 05/31/17 05/31/17 04:25 04:25 Sodium 140 Potassium 4.3 Chloride 107 Carbon Dioxide 24 Anion Gap 13.3 BUN 2 L Creatinine 0.60 GFR Calculation 105 BUN/Creatinine Ratio 3.00 L Glucose 98 Calculated Osmolality 274.4 Calcium 8.4 L Magnesium 2.0 Carcinoembryonic Ag < 0.5 CA 19-9 Antigen 12.1 DS: Provider Date of admission: 05/26/17 16:03 Primary care physician: Hollis Talbert MD Attending physician on admission: Stephen Paris MD Consults: 05/26/17 17:35 Consult to Physician [CONS] Routine Comment: Consulting Provider: Capo Osuna Person Notified: Dr. Barry Date Notified: 05/27/17 Time Notified: 08:37 Consult Notification Comment: DR OSUNA OFFICE NOTIFIED ON MONDAY Discharging clinician: Stephen Paris MD
[2017-05-31 16:41] VITALS: BP 150/81
== END 2017-05-31 17:15 | disposition home or self-care (01) | DRG 392 ==
LOC: N.2E 16:03
PROVIDERS: ADMIT Internal Medicine; ATTEND Internal Medicine